=== PATIENT | male | born 1950 | race Caucasian/White ===

== ENCOUNTER 2016-10-26 10:47 | Inpatient (IN) | payer MEDICARE, OTHER ==
[2016-10-21 12:16] LABS: ASCORBIC ACID (UR NOT ORDER) NEG (NEG); BILIRUBIN, URINE NEGATIVE (NEG); KETONE, URINE NEGATIVE (NEG); LEUKOCYTE ESTERASE(NOT OR TRACE (NEG); WBC (NOT ORDERED) (RFLEX) 8 (0-5)
--- NOTE | ~2016-10-26 | PREOPHP ---
PreOp History and Physical [address] [place]. [address] NAME: SANDEEP ROE : 49 STATUS : DIS IN PAT#: [id number] AGE: 66 ADM/REG DATE : 10/26/16 MR#: [id number] REPORT SERV DATE: 11/26/16 DICTATED BY: AMAURI PATEL DATE: 11/26/16 REPORT STATUS : Draft TRANSCRIBED BY: KENISHA DATE: 11/26/16 CHIEF COMPLAINT: Polycystic kidney disease. HISTORY OF PRESENT ILLNESS: Mr. Roe is a very pleasant 66-year-old male with adult-onset polycystic kidney disease. He now has end-stage renal disease, on dialysis. He has recurrent cyst infections. He is here for bilateral laparoscopic simple nephrectomies. PAST MEDICAL HISTORY: Adult polycystic kidney disease, end-stage renal disease, palpitations, diverticulosis, colon polyp, umbilical hernia, recurrent UTIs, urethral stricture, and hypospadias. SURGICAL HISTORY: Cholecystectomy, surgery for stigmatism, placement of left upper extremity AV fistula. SOCIAL HISTORY: He does not smoke, drink, or use illegal drugs. ALLERGIES: PENICILLIN. MEDICATIONS: Reviewed and are on the chart. FAMILY HISTORY: No genitourinary cancers. REVIEW OF SYSTEMS: A 12-point review of systems was performed. Pertinent positives listed in the HPI. PHYSICAL EXAMINATION: VITAL SIGNS: Afebrile. Vital signs stable. GENERAL: No acute distress. Appears his stated age. HEENT: Head is normocephalic and atraumatic. LUNGS: Breathing is nonlabored. He is not in respiratory distress. HEART: Pulse is regular in rate and rhythm. ABDOMEN: Soft, nontender, nondistended. NEURO: He is alert and oriented x3. LABORATORY DATA: No new labs. IMAGING: No new imaging. ASSESSMENT AND PLAN: Mr. Roe has chronically infected very large polycystic kidneys. He is now on dialysis. He is here for kidney removal. Risks and benefits discussed in detail. We will proceed as planned. JUSTUS/KENISHA auri [place] PreOp History and Physical [facility] [address] [address] NAME: SANDEEP ROE : 49 STATUS : DIS IN PAT#: [id number] AGE: 66 ADM/REG DATE : 10/26/16 MR#: [id number] REPORT SERV DATE: 11/26/16 DICTATED BY: AMAURI PATEL DATE: 11/26/16 REPORT STATUS : Draft TRANSCRIBED BY: MODL DATE: 11/26/16 MD Marissa / [id number] CC: MD Gonzalo Duncan M.D.
--- NOTE | ~2016-10-26 | CN ---
Consultation Report [facility] [address] [place]. [address] NAME: SANDEEP ROE : 49 STATUS : ADM IN PAT#: [id number] AGE: 66 ADM/REG DATE : 10/26/16 MR#: [id number] REPORT SERV DATE: 10/27/16 DICTATED BY: RADHA LESLIE DATE: 10/26/16 REPORT STATUS : Draft TRANSCRIBED BY: MODL DATE: 10/26/16 NEPHROLOGY CONSULTATION DATE OF CONSULTATION: 10/26/2016 INDICATION FOR CONSULTATION: End-stage renal disease management. HISTORY OF PRESENT ILLNESS: Mr. Roe is a 66-year-old male, who is followed on chronic hemodialysis for end-stage renal disease secondary to polycystic renal disease. He has a history of recurrent urinary tract infections predominantly with E. coli, and on evaluation, these have been attributed to infected cyst. He was seen by [facility] and advised that he would need to have his kidneys removed prior to activation on the list due to these recurrent infections. Presently, he is admitted for bilateral nephrectomies due to the infected cyst. PAST MEDICAL HISTORY: Adult polycystic kidney disease, progressing to end-stage renal disease, dialyzing Monday, Monday, Monday at [facility] by left upper extremity AV fistula; history of palpitations; diverticulosis; colon polyps; status post herniorrhaphy for umbilical hernia; remote cholecystectomy; surgery for stigmatism; recurrent urinary tract infections with E. coli; history of urethral stricture; and hypospadias, status post dilatation. SOCIAL HISTORY: The patient is . Remote tobacco use. None for 20 years. No alcohol use. One child in good health. He is retired cnc lathe machinist. ALLERGIES: PENICILLIN. HOME MEDICATIONS: Amlodipine, enteric coated aspirin, Bumex, Coreg, Ceftin, Aranesp, Bentyl, Prilosec, MiraLAX, and sodium bicarb. FAMILY HISTORY: Significant for polycystic kidney disease in multiple family members on maternal side. Mother age 53 of heart attack. Father age 96. One sister with coronary artery disease. No reported end-stage renal disease. One uncle dying of a ruptured cerebral aneurysm. Father with dementia. One sister with type 2 diabetes mellitus. REVIEW OF SYSTEMS: HEENT: No change in visual acuity. No epistaxis. No otic infection. No pharyngitis. PULMONARY: No recent shortness of breath, cough, or hemoptysis. CARDIAC: No chest pain. No lower extremity edema or palpitations. GI: Appetite stable. No nausea or vomiting. : History of recurrent urinary tract infections. No recent gross hematuria. INTEGUMENT: No rash, no itching. MUSCULOSKELETAL: No arthralgias. Consultation Report [facility] [address] [place]. [address] NAME: SANDEEP ROE : 49 STATUS : ADM IN [facility]#: [id number] AGE: 66 ADM/REG DATE : 10/26/16 MR#: [id number] REPORT SERV DATE: 10/27/16 DICTATED BY: RADHA LESLIE DATE: 10/26/16 REPORT STATUS : Draft TRANSCRIBED BY: KENISHA DATE: 10/26/16 NEUROLOGIC: No seizure activity or lateralizing weakness. Remainder of 12-point review of systems is negative. PHYSICAL EXAMINATION: GENERAL: Somewhat lethargic but pleasant white male, alert, cooperative. VITAL SIGNS: Blood pressure 161/74, pulse 67, respiratory rate 20, temperature 98.6. HEENT: Eyes: No scleral icterus. Pupils equal, reactive to light. Extraocular movement intact. Nares patent. No discharge. Throat, no injection. Mucous membranes moist. NECK: No thyromegaly, masses, or bruits. CHEST/LUNGS: Few light crackles at bases posteriorly. No wheezing. No dullness. CARDIAC: Regular rate and rhythm. No murmur, gallop, or rub. ABDOMEN: Incision noted. Decreased bowel sounds. Appropriately tender. /RECTAL: Not performed. EXTREMITIES: No lower extremity edema. Left upper extremity AV fistula with good bruit, thrill. NEUROLOGIC: Cranial nerves intact. No lateralizing weakness. MUSCULOSKELETAL: No deformity. No joint tenderness. IMPRESSION: 1. End-stage renal disease, dialyzing Monday, Monday, Monday at [facility] by left upper extremity AV fistula. 2. Polycystic kidney disease. 3. Recurrent urinary tract infections due to infected cyst. 4. Status post bilateral nephrectomies. 5. Remote cholecystectomy. 6. Anemia. 7. Gastroesophageal reflux disease. 8. Diverticulosis. 9. Colon polyps. 10.Hypertension. PLAN: 1. No change in current therapy. 2. Labs. 3. Dialysis on 10/28/2016. CG/MODL Radha Leslie M.D. / [id number] Consultation Report [address] [place] [address] NAME: SANDEEP ROE : 49 STATUS : ADM IN PAT#: [id number] AGE: 66 ADM/REG DATE : 10/26/16 MR#: [id number] REPORT SERV DATE: 10/27/16 DICTATED BY: RADHA LESLIE DATE: 10/26/16 REPORT STATUS : Draft TRANSCRIBED BY: KENISHA DATE: 10/26/16 CC: Jamie Ann MD
--- NOTE | ~2016-10-26 | OP ---
Record Of Operation [facility] [address] [place]. [address] NAME: SANDEEP ROE : 49 STATUS : ADM IN PAT#: [id number] AGE: 66 ADM/REG DATE : 10/26/16 MR#: [id number] REPORT SERV DATE: 10/26/16 DICTATED BY: AMAURI ANN DATE: 10/26/16 REPORT STATUS : Draft TRANSCRIBED BY: MODL DATE: 10/26/16 DATE OF PROCEDURE: 10/26/2016 TYPE OF OPERATION: Laparoscopic bilateral simple nephrectomy. PREOPERATIVE DIAGNOSES: 1. Polycystic kidney disease. 2. End-stage renal disease, on dialysis. 3. Recurring pyelonephritis. 4. Chronic flank pain. POSTOPERATIVE DIAGNOSES: 1. Polycystic kidney disease. 2. End-stage renal disease, on dialysis. 3. Recurring pyelonephritis. 4. Chronic flank pain. INDICATIONS: Mr. Roe is a 66-year-old male with adult polycystic kidney disease. He has progressed to dialysis now. He has recurring infections, needing long-term antibiotics and pain. He is here for bilateral nephrectomy to treat his pain and remove the infectious source. ANESTHESIA: General. COMPLICATIONS: None. IMPLANTS: None. SPECIMEN: Left and right kidney. NARRATIVE: The patient was brought to the operating room and identified by his wristband. General anesthesia was induced and Ancef was given for preoperative antibiotics. He was first placed in a modified right flank position, secured to the bed with pads and tape. He was prepped and draped in sterile fashion. His abdomen was insufflated to pressure of 15 mmHg using a Veress needle. A periumbilical incision was made and a 12-mm port was placed into his belly under direct vision. The abdomen was inspected and there was no adhesions or abnormalities outside of the large kidneys. A 12-mm port was placed in the upper midline and a second 12-mm port was placed in the lower right quadrant. A 5-mm port was placed in the upper left quadrant and a locking grasper was used to retract the liver cephalad. Using a ligature device and suction, I dropped the colon along the white line of Toldt exposing the retroperitoneum. This was reflected medially to expose the inferior vena cava and duodenum. The duodenum was sharply Kocherized and dissected off the vena cava. There was some mesenteric inflammatory changes associated with a chronically infected stents. Some mesentery was left on the kidney in order to have a safe dissection plane. The gonadal vein was identified and Record Of Operation [facility] [id number] [facility] [place]. [address] NAME: SANDEEP ROE : 49 STATUS : ADM IN PAT#: [id number] AGE: 66 ADM/REG DATE : 10/26/16 MR#: [id number] REPORT SERV DATE: 10/26/16 DICTATED BY: AMAURI ANN DATE: 10/26/16 REPORT STATUS : Draft TRANSCRIBED BY: MODRoss DATE: 10/26/16 reflected onto the vena cava. The ureter was lifted up off the psoas muscle. The fibrofatty tissue surrounding the hilum was taken with a LigaSure device. A single renal artery and vein were identified. These were stapled with a 45 mm endovascular stapler sequentially. Next, the dartos fascia was entered superiorly and the adrenal gland was left in the body. The attachments to the adrenal gland and the kidney were taken with a LigaSure device. The superior attachments to the kidney and lateral attachments were both taken with a LigaSure device. The ureter and gonadal vein were clipped and divided beneath the lower pole. The kidney was then free from all attachments. The bed was irrigated. There was no bleeding. The kidney was left in the body. Next, the instruments were removed. The abdomen was desufflated. The drape was removed and Ioban was placed over the pre-existing ports and over the sterile towels. The patient was then repositioned into a left modified flank position and resecured to the bed with pads and tape. The Ioban was removed. The patient was reprepped and redraped in sterile fashion. The abdomen was then re-insufflated to a pressure of 15 mmHg using the preplaced port. Only, a final 12-mm port was placed in the left lower quadrant for the final port. The operation was then begun by dropping the colon on the left side along the white line of Toldt exposing the retroperitoneum. This was left inferiorly to expose the aorta. Again, there was some mesenteric inflammatory changes associated with the mesentery and the acute renal cyst. Small amount of mesentery was left on the kidney in order to have a safe dissection. The splenorenal ligaments were sharply divided. The pancreas was reflected bluntly off the kidney. Care was taken to not injure the pancreas. The gonadal vein was identified as was the ureter. I entered the retroperitoneum beneath the structures within the kidney up off the psoas muscle. Fibrofatty tissue surrounding the renal hilum was taken with a LigaSure device. A single renal artery and vein were identified and taken sequentially with a 45-mm endovascular stapler. The adrenal gland was reflected off the kidney and left in the body. The superior attachments to the kidney as well as lateral attachments were taken with a LigaSure device. The ureter and gonadal were clipped and divided bilaterally. Once all attachments were taken from the kidney, it was free and placed into the pelvis. The nephrectomy site was irrigated with sterile water and there was no ongoing bleeding. The patient was then rotated back to a normal position. The left 12-mm port was closed with an 0 Vicryl tie using a Jan-Russel device under direct vision. All other ports were removed. The periumbilical and upper midline ports were connected with a knife creating a large incision. This incision was carried down to the level of the fascia with electrocautery. The fascia was then divided with electrocautery. The midline was identified. The rectus muscle was split in the midline. The abdomen was entered. Both kidneys were then grasped and removed sequentially from the body and sent to pathology for analysis. The bladder was irrigated with sterile water. The fascia was closed with a #1 PDS loop suture in running fashion. The wounds were irrigated clear. The subcutaneous tissues were closed with a 3-0 Vicryl suture. Skin was closed with a 4-0 Monocryl suture. A Dermabond dressing was placed. Before the belly was closed, the final 12-mm port was closed with a 0 Vicryl suture on a UR6 needle under direct vision and care taken not to injure the bowel. The patient was then straight cathed and the urine was drained from his bladder. The patient was awoken from anesthesia and transferred to the recovery room in stable condition. There were no complications. Estimated blood loss was 20 mL. I will consult Nephrology for dialysis while he is an inpatient. Record Of Operation [place] [id number] [facility] [place]. [address] NAME: SANTIAGOSANDEEPALD : 48 STATUS : ADM IN PAT#: [id number] AGE: 66 ADM/REG DATE : 10/26/16 MR#: [id number] REPORT SERV DATE: 10/26/16 DICTATED BY: AMAURI ANN DATE: 10/26/16 REPORT STATUS : Draft TRANSCRIBED BY: MODL DATE: 10/26/16 JUSTUS/KENISHA auri Ann MD / [id number] CC: Amauri Ann MD
[~2016-10-26 10:47] MED LIST: ACIDOPHILU1 PO; ACIDOPHILU2 PO; AMLODIPINE BESYLATE PO; ARANESP100 IV; ASA5GR PO; ASAB PO; BACDS PO; BENTYL10 PO; BESYLATE; BUM1 PO; BUSPAR10 PO; CEFT2 PO; CEFT5 PO; CIP5 PO; CIPOTIC OT; COREG12 PO; COREG6 PO; COZAAR100 MG PO; DIOVAN HCT160 MG/25 PO; FERROUS SULF325 M1 PO; FOLIC PO; GLYCOLAX PO; HALF81 PO; HYGROTON 25 MG25 MG OR; HYGROTON 25 MG25 MG PO; IRON325 MG PO; LACTOBACILLUS ACIDOPHILUS; LORT7 PO; LOSARTAN POTASSIUM PO; MACRODANTIN 10100 MG PO; MIRALAXPKT PO; MULTI ENZYME; MULTI ENZYME PO; MULTIVITAMI1 PO; NORV5 PO; PREV15 PO; PRILOSEC40 MG PO; PROBIOTIC ACIDOPHILU; ROCEPH IM; RX NASAL SPRAY NAS; SODBICAR10 PO; VICODINTAB PO; ZANTAC150 MG PO; ZOFRAN4 PO; [UNRECOGNIZED DRUG - CODE] PO; [UNRECOGNIZED DRUG - OTHER]
[2016-10-26 11:09] LABS: HEMATOCRIT 33.6 % (40.0-51.0); HEMOGLOBIN 11.3 g/dL (13.6-17.8)
[2016-10-26 11:20] LABS: CALCIUM, SERUM 9.1 MG/DL (8.5-10.4); GFR AFRICAN AMERICAN 18 ML/MIN (>=60); GFR NON AFRICAN AMERICAN 16 ML/MIN (>=60); GLUCOSE, SERUM 103 MG/DL (60-99); POTASSIUM, SERUM 4.4 MMOL/L (3.5-5.3); SODIUM, SERUM 138 MMOL/L (135-148)
[2016-10-26 11:21] LABS: BUN (BLOOD UREA NITROGEN) 13 MG/DL (6-23); CHLORIDE, SERUM 97 MMOL/L (96-112); CO2 (CARBON DIOXIDE) 31 MMOL/L (24-34)
[2016-10-26 11:22] LABS: CREATININE 3.75 MG/DL (0.70-1.30)
[2016-10-26 17:17] LABS: BASOPHILS 0.4 %; BASOPHILS ABSOLUTE 0.03 10/3/uL (0.0-0.16); EOSINOPHILS 1.1 %; EOSINOPHILS ABSOLUTE 0.08 10/3/uL (0.0-0.53); HEMOGLOBIN 10.1 g/dL (13.6-17.8); IMMATURE GRANULOCYTES 0.3 %; IMMATURE GRANULOCYTES ABSOLUTE 0.02 10/3/uL (0.0-0.11); MEAN CORPUS HGB CONC 34.6 g/dL (32.0-36.0); MEAN PLATELET VOLUME 9.7 fL (9.2-13.0); MONOCYTES 2.9 %; MONOCYTES ABSOLUTE 0.21 10/3/uL (0.21-1.20); NEUTROPHILS 88.3 %; NEUTROPHILS ABSOLUTE 6.35 10/3/uL (2.02-8.40); PLATELET COUNT 140 10/3/uL (150-400); RBC DISTRIBUTION WIDTH 14.8 % (12.0-16.0); WHITE BLOOD CELLS 7.2 10/3/uL (4.5-10.5)
[2016-10-26 17:20] LABS: HEMATOCRIT 29.2 % (40.0-51.0); MANUAL DIFF NO %; MEAN CORPUSCULAR HEMOGLOB 33.7 pg (26.0-34.0); MEAN CORPUSCULAR VOLUME 97.3 fL (80-100)
[2016-10-26 17:30] LABS: BUN (BLOOD UREA NITROGEN) 16 MG/DL (6-23); CALCIUM, SERUM 8.1 MG/DL (8.5-10.4); CHLORIDE, SERUM 99 MMOL/L (96-112); CO2 (CARBON DIOXIDE) 25 MMOL/L (24-34); GFR AFRICAN AMERICAN 17 ML/MIN (>=60); GFR NON AFRICAN AMERICAN 15 ML/MIN (>=60); GLUCOSE, SERUM 169 MG/DL (60-99); POTASSIUM, SERUM 3.8 MMOL/L (3.5-5.3); SODIUM, SERUM 137 MMOL/L (135-148)
[2016-10-27 06:47] LABS: BASOPHILS 0.1 %; BASOPHILS ABSOLUTE 0.01 10/3/uL (0.0-0.16); EOSINOPHILS 0 %; HEMATOCRIT 31.5 % (40.0-51.0); HEMOGLOBIN 10.7 g/dL (13.6-17.8); IMMATURE GRANULOCYTES 0.2 %; IMMATURE GRANULOCYTES ABSOLUTE 0.02 10/3/uL (0.0-0.11); LYMPHOCYTES 5.1 %; LYMPHOCYTES ABSOLUTE 0.42 10/3/uL (0.67-4.30); MEAN CORPUSCULAR HEMOGLOB 33.2 pg (26.0-34.0); MEAN CORPUSCULAR VOLUME 97.8 fL (80-100); MEAN PLATELET VOLUME 9.9 fL (9.2-13.0); MONOCYTES 12.6 %; MONOCYTES ABSOLUTE 1.04 10/3/uL (0.21-1.20); NEUTROPHILS ABSOLUTE 6.79 10/3/uL (2.02-8.40); PLATELET COUNT 164 10/3/uL (150-400); RBC DISTRIBUTION WIDTH 14.5 % (12.0-16.0); RED CELL COUNT 3.22 10/6/uL (4.7-6.1); WHITE BLOOD CELLS 8.3 10/3/uL (4.5-10.5)
[2016-10-27 06:48] LABS: MANUAL DIFF NO %
[2016-10-27 07:06] LABS: ALBUMIN 3.1 G/DL (3.5-5.0); CHLORIDE, SERUM 96 MMOL/L (96-112); CO2 (CARBON DIOXIDE) 22 MMOL/L (24-34); POTASSIUM, SERUM 4.3 MMOL/L (3.5-5.3); SODIUM, SERUM 134 MMOL/L (135-148)
[2016-10-27 07:07] LABS: BUN (BLOOD UREA NITROGEN) 28 MG/DL (6-23); CREATININE 5.64 MG/DL (0.70-1.30); GFR AFRICAN AMERICAN 11 ML/MIN (>=60); GFR NON AFRICAN AMERICAN 10 ML/MIN (>=60); GLUCOSE, SERUM 133 MG/DL (60-99); PHOSPHORUS, SERUM 7.1 MG/DL (2.5-4.5)
[2016-10-27] MEDS ORDERED: TUMSROLL PO (14:13)
[2016-10-27] MEDS ORDERED: ARANESP IV (14:13)
[2016-10-27] MEDS ORDERED: PROBIOTIC PO (14:15)
[2016-10-27] MEDS ORDERED: T PO (14:16)
[2016-10-27] MEDS ORDERED: IRON INFUSION (14:17)
[2016-10-27] MEDS ORDERED: NITROSTAT0.4 MG SL (14:18)
[2016-10-28 09:02] LABS: BASOPHILS 0.2 %; BASOPHILS ABSOLUTE 0.01 10/3/uL (0.0-0.16); EOSINOPHILS 3.1 %; EOSINOPHILS ABSOLUTE 0.19 10/3/uL (0.0-0.53); HEMOGLOBIN 9.7 g/dL (13.6-17.8); IMMATURE GRANULOCYTES 0.2 %; IMMATURE GRANULOCYTES ABSOLUTE 0.01 10/3/uL (0.0-0.11); LYMPHOCYTES 9.9 %; LYMPHOCYTES ABSOLUTE 0.61 10/3/uL (0.67-4.30); MEAN CORPUS HGB CONC 34.4 g/dL (32.0-36.0); MEAN CORPUSCULAR HEMOGLOB 33.3 pg (26.0-34.0); MEAN CORPUSCULAR VOLUME 96.9 fL (80-100); MONOCYTES ABSOLUTE 0.74 10/3/uL (0.21-1.20); NEUTROPHILS 74.6 %; NEUTROPHILS ABSOLUTE 4.59 10/3/uL (2.02-8.40); PLATELET COUNT 122 10/3/uL (150-400); RBC DISTRIBUTION WIDTH 14.8 % (12.0-16.0); RED CELL COUNT 2.91 10/6/uL (4.7-6.1); WHITE BLOOD CELLS 6.2 10/3/uL (4.5-10.5)
[2016-10-28 09:04] LABS: HEMATOCRIT 28.2 % (40.0-51.0); MANUAL DIFF NO %
[2016-10-28 09:20] LABS: ALBUMIN 2.7 G/DL (3.5-5.0); CALCIUM, SERUM 7.6 MG/DL (8.5-10.4); CHLORIDE, SERUM 94 MMOL/L (96-112); CO2 (CARBON DIOXIDE) 25 MMOL/L (24-34); POTASSIUM, SERUM 3.9 MMOL/L (3.5-5.3); SODIUM, SERUM 131 MMOL/L (135-148)
[2016-10-28 09:23] LABS: BUN (BLOOD UREA NITROGEN) 42 MG/DL (6-23); CREATININE 8.55 MG/DL (0.70-1.30); GFR AFRICAN AMERICAN 7 ML/MIN (>=60); GFR NON AFRICAN AMERICAN 6 ML/MIN (>=60); GLUCOSE, SERUM 89 MG/DL (60-99)
[2016-10-28] MEDS ORDERED: PCET PO (15:14)
[2016-10-28] MEDS ORDERED: DSS PO (15:14)
[2017-01-14] MEDS ORDERED: SODBICAR10 PO (01:02)
[2017-01-14] MEDS ORDERED: NORV5 PO (01:02)
[2017-01-14] MEDS ORDERED: REST15 PO (01:02)
[2017-01-14] MEDS ORDERED: NEUR100 PO (01:03)
[2017-01-14] MEDS ORDERED: PRIN20 PO (01:03)
[2017-01-14] MEDS ORDERED: PHOSLO PO (01:03)
[2017-01-14] MEDS ORDERED: VENTOLIN HFA INH (01:03)
[2017-01-14] MEDS ORDERED: COREG12 PO (01:04)
[2017-01-14] MEDS ORDERED: PRILOSEC40 MG PO (01:04)
[2017-01-14] MEDS ORDERED: 8 HOUR650 MG PO (01:05)
[2017-01-14] MEDS ORDERED: ARANESP IV (01:05)
[2017-01-14] MEDS ORDERED: ASAB PO (01:06)
[2017-01-14] MEDS ORDERED: IRON INFUSION IV (01:07)
[2017-01-14] MEDS ORDERED: NITROSTAT0.4 MG SL (01:07)
[2017-01-14] MEDS ORDERED: PCET PO (01:08)
[2017-01-18] MEDS ORDERED: CIP5 PO (12:16)
[2017-01-18] MEDS ORDERED: LIPITOR40 PO (12:17)
[2017-03-22] MEDS ORDERED: CIP5 PO (09:22)
== END 2016-10-28 16:45 | disposition home or self-care (01) | DRG 660 ==
LOC: SDC/OF 10:47 → PACU 16:29 → 4SO 18:46
PROVIDERS: Anesthesiology; Nurse Practitioner; Urology
PROC: 0TT Urinary System, Resection (ICD-10-PCS; principal; 2016-10-26 12:45)
PROC: 5A1D00Z (ICD-10-PCS; 2016-10-28)
DX: Q61.2 Polycystic kidney, adult type (principal); I12.0 Hypertensive chronic kidney disease with stage 5 chronic kidney disease or end stage renal disease; N18.6 End stage renal disease; Z99.2 Dependence on renal dialysis; Z87.891 Personal history of nicotine dependence; Z87.440 Personal history of urinary (tract) infections; K57.90 Diverticulosis of intestine, part unspecified, without perforation or abscess without bleeding; Z86.010 Personal history of colon polyps; D63.1 Anemia in chronic kidney disease; Z88.0 Allergy status to penicillin; Z88.1 Allergy status to other antibiotic agents; Z88.8 Allergy status to other drugs, medicaments and biological substances; G89.29 Other chronic pain; Z79.82 Long term (current) use of aspirin; Z79.2 Long term (current) use of antibiotics
CPT/HCPCS: 36415; 80048; 80069; 81001; 83735; 85014; 85018; 85025; 86850; 86900; 86901; 86920; 88307; 93005; A9270-GY; G0257; J0690; J1170; J2250; J2370; J2405; J2710; J2795; J3010; P9045

== ENCOUNTER 2016-12-10 21:02 | Emergency (ER) | payer MEDICARE, OTHER ==
[~2016-12-10 21:02] MED LIST changes: +ARANESP IV; +DSS PO; +IRON INFUSION; +NITROSTAT0.4 MG SL; +PCET PO; +PROBIOTIC PO; +T PO; +TUMSROLL PO
[2016-12-10 21:27] LABS: BASOPHILS 0.1 %; BASOPHILS ABSOLUTE 0.01 10/3/uL (0.0-0.16); EOSINOPHILS 0 %; ER CBC TAT 0 Hrs 05 Mins; HEMOGLOBIN 11.1 g/dL (13.6-17.8); IMMATURE GRANULOCYTES 0.3 %; IMMATURE GRANULOCYTES ABSOLUTE 0.02 10/3/uL (0.0-0.11); LYMPHOCYTES 6.4 %; LYMPHOCYTES ABSOLUTE 0.49 10/3/uL (0.67-4.30); MEAN CORPUSCULAR HEMOGLOB 31.4 pg (26.0-34.0); MEAN CORPUSCULAR VOLUME 96.3 fL (80-100); MEAN PLATELET VOLUME 9.7 fL (9.2-13.0); MONOCYTES 5.3 %; NEUTROPHILS 87.9 %; NEUTROPHILS ABSOLUTE 6.69 10/3/uL (2.02-8.40); PLATELET COUNT 112 10/3/uL (150-400); RBC DISTRIBUTION WIDTH 15.2 % (12.0-16.0); WHITE BLOOD CELLS 7.6 10/3/uL (4.5-10.5)
[2016-12-10 21:28] LABS: HEMATOCRIT 34.1 % (40.0-51.0); MANUAL DIFF NO %; MEAN CORPUS HGB CONC 32.6 g/dL (32.0-36.0); RED CELL COUNT 3.54 10/6/uL (4.7-6.1)
[2016-12-10 21:34] LABS: INTERNATIONAL NORMAL RATI 1.4 UNITS (-)
[2016-12-10 21:44] LABS: CHEST PAIN PROFILE TAT 0 Hrs 22 Mins; CHLORIDE, SERUM 100 MMOL/L (96-112); CO2 (CARBON DIOXIDE) 25 MMOL/L (24-34); CREATININE 8.94 MG/DL (0.70-1.30); GFR AFRICAN AMERICAN 6 ML/MIN (>=60); GFR NON AFRICAN AMERICAN 5 ML/MIN (>=60); POTASSIUM, SERUM 4.4 MMOL/L (3.5-5.3); SGOT(AST) 177 U/L (5-40); SGPT(ALT) 88 U/L (5-65); SODIUM, SERUM 137 MMOL/L (135-148); TOTAL PROTEIN 6.6 G/DL (6.0-8.5); TROPONIN I 0.03 NG/ML (<0.05)
[2016-12-10 21:46] LABS: A/G RATIO 1.1 (0.7-1.9); ALBUMIN 3.4 G/DL (3.5-5.0); ALKALINE PHOSPHATASE 294 U/L (45-117); BUN (BLOOD UREA NITROGEN) 47 MG/DL (6-23); CALCIUM, SERUM 8.6 MG/DL (8.5-10.4); GLOBULIN 3.2 G/DL (2.5-4.1); GLUCOSE, SERUM 124 MG/DL (60-99); TOTAL BILIRUBIN 1.5 MG/DL (0-1.2)
[2016-12-10 22:06] LABS: INDIRECT BILIRUBIN(NOT ORDER) 0.6 MG/DL (0.1-0.9)
[2016-12-10 22:07] LABS: DIRECT BILIRUBIN 0.9 MG/DL (0.0-0.4)
[2016-12-10 22:12] LABS: LACTATE 0.8 MMOL/L (0.3-2.4)
[2016-12-10 22:26] LABS: PROCALCITONIN 3.31 ng/mL (<0.5)
[2017-01-14] MEDS ORDERED: REST15 PO (01:02)
[2017-01-14] MEDS ORDERED: NORV5 PO (01:02)
[2017-01-14] MEDS ORDERED: SODBICAR10 PO (01:02)
[2017-01-14] MEDS ORDERED: PRIN20 PO (01:03)
[2017-01-14] MEDS ORDERED: VENTOLIN HFA INH (01:03)
[2017-01-14] MEDS ORDERED: PHOSLO PO (01:03)
[2017-01-14] MEDS ORDERED: NEUR100 PO (01:03)
[2017-01-14] MEDS ORDERED: PRILOSEC40 MG PO (01:04)
[2017-01-14] MEDS ORDERED: COREG12 PO (01:04)
[2017-01-14] MEDS ORDERED: ARANESP IV (01:05)
[2017-01-14] MEDS ORDERED: 8 HOUR650 MG PO (01:05)
[2017-01-14] MEDS ORDERED: ASAB PO (01:06)
[2017-01-14] MEDS ORDERED: IRON INFUSION IV (01:07)
[2017-01-14] MEDS ORDERED: NITROSTAT0.4 MG SL (01:07)
[2017-01-14] MEDS ORDERED: PCET PO (01:08)
[2017-01-18] MEDS ORDERED: CIP5 PO (12:16)
[2017-01-18] MEDS ORDERED: LIPITOR40 PO (12:17)
[2017-03-22] MEDS ORDERED: CIP5 PO (09:22)
== END 2016-12-11 01:15 | disposition home or self-care (01) ==
LOC: ER 21:02
PROVIDERS: Emergency Medicine
DX: R10.13 Epigastric pain (principal); J40 Bronchitis, not specified as acute or chronic; Z88.0 Allergy status to penicillin; Z88.1 Allergy status to other antibiotic agents; Z91.041 Radiographic dye allergy status; Z79.82 Long term (current) use of aspirin; Z79.899 Other long term (current) drug therapy
CPT/HCPCS: 71020; 80048; 80053; 81001; 82248; 83605; 83690; 83735; 84145; 84484; 85025; 85610; 85730; 87040; 93005; 96365; 99285; J0456